=== PATIENT | female | born 1950 | race Caucasian/White ===

== ENCOUNTER → 2017-12-19 | Outpatient (CLI) | payer BC | END | disposition home or self-care (01) | LOC: KCIC US 12:55 | DX: E11.51 Type 2 diabetes mellitus with diabetic peripheral angiopathy without gangrene (principal); R03.0 Elevated blood-pressure reading, without diagnosis of hypertension; R31.9 Hematuria, unspecified; R91.8 Other nonspecific abnormal finding of lung field; Z90.710 Acquired absence of both cervix and uterus; Z90.49 Acquired absence of other specified parts of digestive tract | CPT/HCPCS: 74176 ==

== ENCOUNTER → 2018-04-19 | Outpatient (CLI) | payer BC ==
[2016-07-30 15:01] VITALS: BP 90/55
[~2018-04-19] MED LIST: ACET500T33 PO; ALPR0.254 PO; ARMO250T4 PO; ASPI-482 PO; ASPI325T8 PO; BUPR1PAT8 TP; CELE200C PO; CHOL10003 PO; CIME200T6 PO; CITA20TA6 PO; CYCL10TA2 PO; DAPA5TAB PO; DEXL60CA2 PO; DOCU-150 PO; DULO30CA2 PO; ESTR1TAB15 PO; FERR325T14 PO; FLUT1DIS5 IH; GABA-586 PO; GUAI-108 PO; LACT1CAP29 PO; LEVO137T3 PO; LEVO150T5 PO; LEVO175T5 PO; LORA10TA3 PO; LOSA1TAB19 PO; MELO15TA23 PO; METF500T5 PO; MULT1TAB52 PO; NAPR-514 PO; OXYB10TA PO; OXYC-323 PO; TRAM50TA PO; WARF-78 PO; WARF3TAB50 PO
--- NOTE | 2018-04-19 13:03 | CARD ---
MR#: [id number] Date of Study: 04/19/2018 Ordering Physician: DONITA MARCOS, Referring Physician: DONITA MARCOS, Tech: Willa Blackwell [facility] APPROVED REPORT EXAM: Two-dimensional and M-mode echocardiogram with Doppler and color Doppler. Other Information Quality : Good INDICATION Dyspnea Fatigue Murmur Mitral Regurgitation 2D DIMENSIONS RVDd2.8 (2.9-3.5cm)Left Atrium(2D)3.2 (1.6-4.0cm) IVSd1.2 (0.7-1.1cm)Aortic Root(2D)2.6 (2.0-3.7cm) LVDd4.3 (3.9-5.9cm)LVOT Diameter2.1 (1.8-2.4cm) PWd0.7 (0.7-1.1cm)LVDs2.1 (2.5-4.0cm) FS (%) 30.0 %SV71.4 ml LVEF(%)60.0 (>50%) Aortic Valve AoV Peak Jarrod.251.3cm/sAoV VTI51.0cm AO Peak GR.25.3mmHgLVOT Peak Jarrod.87.0cm/s AO Mean GR.16mmHgAVA (VMAX)1.19cm2 JESSICA (VTI)1.30cm2 Tricuspid Valve TR P. [id number]/sRAP [id number] TR Peak Gr.[id number] LEFT VENTRICLE The left ventricle is normal size. There is mild to moderate asymmetric septal hypertrophy. The left ventricular systolic function is normal. The Ejection Fraction is 60-65%. There is normal LV segmenta l wall motion. RIGHT VENTRICLE The right ventricle is normal size. The right ventricular systolic function is normal. ATRIA The left atrium size is normal. The right atrium size is normal. The interatrial septum is intact wit h no evidence for an atrial septal defect or patent foramen ovale as noted on 2-D or Doppler imaging. AORTIC VALVE The aortic valve is calcified and displays decreased opening. Doppler and Color Flow revealed no sign ificant aortic regurgitation. Calculated aortic valve area is 1.3 cm2 with maximum pressure gradient of 25 mmHg and mean pressure gradient of 16 mmHg. Doppler and color-flow analysis revealed mild aorti c stenosis. MITRAL VALVE The mitral valve is calcified but opens well. Posterior mitral annular calcification is mild. There i s no evidence of mitral valve prolapse. There is no mitral valve stenosis. Doppler and Color-flow rev ealed trace mitral regurgitation. TRICUSPID VALVE The tricuspid valve is normal in structure and function. Doppler and Color Flow revealed trace tricus pid regurgitation. The PA pressure was estimated at 25 mmHg. There is no tricuspid valve stenosis. PULMONIC VALVE The pulmonic valve is not well visualized. Doppler and Color Flow revealed no pulmonic valvular regur gitation. There is no pulmonic valvular stenosis. GREAT VESSELS The aortic root is normal in size. The ascending aorta is normal in size. The IVC is normal in size a nd collapses >50% with inspiration. PERICARDIAL EFFUSION There is no evidence of significant pericardial effusion. Critical Notification Critical Value: No <Conclusion> The left ventricular systolic function is normal. The Ejection Fraction is 60-65%. There is normal LV segmental wall motion. Mild aortic stenosis. Trace mitral regurgitation. Trace tricuspid regurgitation. The PA pressure was estimated at 25 mmHg. There is no evidence of significant pericardial effusion. Signed by : Molina Samayoa, Electronically Approved : 04/19/2018 13:02:12
== END | disposition home or self-care (01) ==
LOC: ECHO 09:38
PROVIDERS: ATTEND Nurse Practitioner Family
DX: I08.3 Combined rheumatic disorders of mitral, aortic and tricuspid valves (principal); I10 Essential (primary) hypertension; E11.9 Type 2 diabetes mellitus without complications; Z83.3 Family history of diabetes mellitus; I48.91 Unspecified atrial fibrillation; E03.9 Hypothyroidism, unspecified; J45.909 Unspecified asthma, uncomplicated; F17.200 Nicotine dependence, unspecified, uncomplicated; K21.9 Gastro-esophageal reflux disease without esophagitis; Z90.49 Acquired absence of other specified parts of digestive tract; Z90.710 Acquired absence of both cervix and uterus
CPT/HCPCS: 93306

== ENCOUNTER → 2019-06-29 | Outpatient (CLI) | payer BC ==
[2016-07-30 15:01] VITALS: BP 90/55
[~2019-06-29] MED LIST changes: -GABA-586 PO; +GABA300C18 PO; +METF500T16 PO; -METF500T5 PO; -OXYB10TA PO; +OXYB10TA2 PO; -OXYC-323 PO; +OXYC1TAB15 PO
--- NOTE | 2019-06-29 16:09 | RAD ---
LUMBAR SPINE 2-3V History: Spondylolisthesis. Technique: 3 views lumbar spine. Comparison: None. Findings: Standing flexion view demonstrate grade 1 anterolisthesis L4 on L5 and L5 on S1, slightly reduced with extension. Lateral supine radiograph demonstrates further reduction of the anterolisthesis. Mild retrolisthesis L2 on L3, unchanged with flexion and extension. Multilevel lumbar spondylosis most prominent L1-L2 and L2-L3. Multilevel facet arthropathy. Vascular calcifications. Impression: 1. Grade 1 anterolisthesis L4 on L5 and L5 on S1 in flexion, slightly reduced with extension and further reduced with supine lateral view. 2. Multilevel lumbar spondylosis most prominent L1-L2 and L2-L3. Electronically signed by: Devon Knutson DO (06/29/2019 4:07 PM) [facility]
== END | disposition home or self-care (01) ==
LOC: RAD 07:56
PROVIDERS: ATTEND Neurological Surgery
DX: M43.17 Spondylolisthesis, lumbosacral region (principal); M47.816 Spondylosis without myelopathy or radiculopathy, lumbar region; M12.88 Other specific arthropathies, not elsewhere classified, other specified site
CPT/HCPCS: 72100

== ENCOUNTER → 2019-08-02 | Outpatient (CLI) | payer BC ==
[2016-07-30 15:01] VITALS: BP 90/55
--- NOTE | 2019-08-02 09:11 | RAD ---
EXAM: Carotid Doppler sonogram. HISTORY: Carotid stenosis. Hypertension. Smoking. Diabetes. TECHNIQUE: Lezama scale and color Doppler sonographic evaluation of the neck with spectral waveform analysis was performed and static images are submitted for review. FINDINGS: There is mild atherosclerotic plaque throughout the carotid bifurcations. The peak systolic velocity within the right common carotid artery is 75 cm/sec. The peak systolic velocity within the right internal carotid artery is 102 cm/sec and the end diastolic velocity within the right internal carotid artery is 33 cm/sec. The right ICA/CCA ratio is 1.35. The peak systolic velocity within the left common carotid artery is 88 cm/sec. The peak systolic velocity within the left internal carotid artery is 63 cm/sec and the end diastolic velocity within the left internal carotid artery is 23 cm/sec. The left ICA/CCA ratio is 0.72. There is normal antegrade flow within both vertebral arteries. IMPRESSION: No Doppler evidence of hemodynamically significant stenosis within the carotid or vertebral arteries. PQRS Compliance Statement - Stenosis calculations for CT, MR and conventional angiography are based upon measurement of the distal ICA diameter in accordance with the NASCET methodology. Stenosis calculations for carotid ultrasound studies are derived from validated velocity criteria which are known to correlate with the NASCET methodology. Electronically signed by: Cata Stearns MD (08/02/2019 9:08 AM) [place] [id number]
== END | disposition home or self-care (01) ==
LOC: US 08:28
PROVIDERS: ATTEND Family Medicine
DX: I65.23 Occlusion and stenosis of bilateral carotid arteries (principal); I10 Essential (primary) hypertension; E11.9 Type 2 diabetes mellitus without complications; Z87.891 Personal history of nicotine dependence
CPT/HCPCS: 93880